=== PATIENT | male | born 1970 | race Caucasian/White ===

== ENCOUNTER → 2020-03-10 | Outpatient (CLI) | payer BC ==
--- NOTE | 2020-03-10 15:56 | US ---
EXAMINATION TYPE: US venous doppler duplex LE LT DATE OF EXAM: 03/10/2020 3:47 PM COMPARISON: NONE CLINICAL HISTORY: M25.562 PAIN IN LT KNEE,I80.9 PHLEBITIS. Chronic knee pain. No hx DVT. SIDE PERFORMED: Left TECHNIQUE: The lower extremity deep venous system is examined utilizing real time linear array sonog darrel with graded compression, doppler sonography and color-flow sonography. VESSELS IMAGED: Common Femoral Vein Deep Femoral Vein Greater Saphenous Vein * Femoral Vein Popliteal Vein Small Saphenous Vein * Proximal Calf Veins (* superficial vessels) Left Leg: Negative for DVT Grayscale, color doppler, spectral doppler imaging performed of the deep veins of the left lower extr emity. There is normal flow, compressibility, vascular waveforms. IMPRESSION: No ultrasound evidence for acute DVT in the left lower extremity.
== END | disposition home or self-care (01) ==
LOC: RADUSWWP 15:17
PROVIDERS: ATTEND Orthopaedic Surgery
DX: I80.9 Phlebitis and thrombophlebitis of unspecified site (principal); M25.562 Pain in left knee; M25.561 Pain in right knee; M17.0 Bilateral primary osteoarthritis of knee; Z87.891 Personal history of nicotine dependence; I10 Essential (primary) hypertension; E78.5 Hyperlipidemia, unspecified